=== PATIENT | male | born 1970 | race Caucasian/White ===

== ENCOUNTER 2018-04-26 14:56 | Emergency (ER) | payer OTHER ==
[2018-04-26 15:15] VITALS: BP 148/79
[2018-04-26] MEDS ORDERED: NAPROXEN 250 MG TABLET PO STA (16:13)
[2018-04-26] MEDS ORDERED: BENZONATATE 100 MG CAPSULE PO STA (16:28)
--- NOTE | 2018-04-26 16:43 | ED Physician Documentation ---
History of Present Illness - Stated complaint Stated Complaint: BODY ACHES, COUGH, - Chief complaint Chief Complaint: General - Additonal information Additional information: 47-year-old male presents the emergency department with 24 hours of nasal congestion, fever, chills, cough, body aches and generally not feeling well. The patient has reported improvement with his body aches with Tylenol. No other sick contacts. No reports of respiratory distress or difficulty breathing. Symptoms are described as moderate. No other associated symptoms. The patient has not had his flu shot. Review of Systems Constitutional: reports: Fever, Chills, Myalgias Eyes: denies: Discharge Ears: denies: Ear pain Nose: reports: Rhinorrhea / runny nose, Congestion Throat: reports: Sore throat Cardiac: denies: Pedal edema Respiratory: reports: Cough GI: denies: Constipation : denies: Dysuria Skin: denies: Rash Musculoskeletal: denies: Neck pain PD PAST MEDICAL HISTORY - Past Medical History Past Medical History: No - Past Surgical History Past Surgical History: No - Present Medications Home Medications: Ambulatory Orders Medication Instructions Recorded Confirmed Azithromycin [Zithromax] 250 mg PO DAILY #6 tablet 03/22/15 Benzonatate [Tessalon] 100 mg PO TID PRN #20 capsule 03/22/15 guaiFENesin/CODEINE [Robitussin AC] 5 - 10 ml PO Q6H PRN #120 udc 03/22/15 Albuterol Sulf [Ventolin Hfa 1 - 2 puffs INH Q4HR PRN #1 inhaler 04/26/18 Inhaler] Benzonatate [Tessalon Perle] 100 mg PO TID PRN #30 capsule 04/26/18 Naproxen [Naprosyn] 500 mg PO BID PRN 30 Days #30 04/26/18 tablet - Allergies Allergies/Adverse Reactions: Allergies Allergy/AdvReac Type Severity Reaction Status Date / Time No Known Drug Allergies Allergy Verified 03/22/15 10:13 - Social History Does the pt smoke?: No Smoking Status: Never smoker Does the pt drink ETOH?: No PD ED PE NORMAL - General General: Alert and oriented X 3, No acute distress - HEENT HEENT: Atraumatic, PERRL, EOMI - Cardiac Cardiac: RRR, Strong equal pulses - Respiratory Respiratory: No respiratory distress, Clear bilaterally - Derm Derm: Normal color - Extremities Extremities: No deformity - Neuro Neuro: Alert and oriented X 3, Normal speech - Psych Psych: Normal mood Results - Vitals Vitals: Vital Signs - 24 hr 04/26/18 15:09 Temperature 36.2 C L Heart Rate 86 Respiratory 14 Rate Blood Pressure 148/79 H O2 Saturation 96 Oxygen O2 Source Room air - Labs Labs: Laboratory Tests 04/26/18 15:15 Influenza A (Rapid) POSITIVE H Influenza B (Rapid) Negative PD MEDICAL DECISION MAKING - ED course ED course: The patient has influenza, the patient's symptoms are mild in nature and he appears appropriate for outpatient management. The natural course of influenza was discussed with the patient. I discussed warning signs and recommended returning to the emergency department immediately for any worsening or any concerns. Departure - Departure Disposition: 01 Home, Self Care Clinical Impression: Influenza Condition: Good Instructions: ED Influenza Ch Prescriptions: Albuterol Sulf [Ventolin Hfa Inhaler] 1 - 2 puffs INH Q4HR PRN #1 inhaler PRN Reason: Shortness Of Air/Wheezing Benzonatate [Tessalon Perle] 100 mg PO TID PRN #30 capsule PRN Reason: Cough Naproxen [Naprosyn] 500 mg PO BID PRN 30 Days #30 tablet PRN Reason: Pain Comments: Please follow-up with your primary care physician in 7 days. Please return to the emergency department for worsening symptoms or any concerns.
== END 2018-04-26 16:52 | disposition home or self-care (01) ==
LOC: ED 14:56
DX: J11.1 Influenza due to unidentified influenza virus with other respiratory manifestations (principal)
CPT/HCPCS: 87275; 87276; 99283; A9270

== ENCOUNTER 2020-01-11 08:48 | Outpatient (CLI) | payer OTHER ==
[2020-01-11 09:37] VITALS: BP 132/92
--- NOTE | 2020-01-11 09:37 | SLEEP CARE CONSULTATION ---
Information from patient questionnaire entered by Laverne Bain. I have reviewed and concur with the information entered by Laverne Bain. This document represents the service I personally performed and the decisions made by me, Yanique Colon ARNP. History of Present Illness Service Date and Time: 01/11/2020 0848 Reason for Visit: New patient Chief Complaint: reports: Unrefreshed sleep, Snoring (has woken up snoring, also seen), Excessive daytime sleepiness, Observed pauses in breathing, Fatigue. denies: Insomnia, Frequent awakenings at night Duration of Symptoms: several years Usual bedtime: 10pm Time it takes to fall asleep: 60 minutes Snores at night: Yes Observed to quit breathing while asleep: Yes () Sleeps alone due to snoring: No Number of times waking at night: maybe once Reasons for waking at night: reports: Choking (not often), Snoring, Gasping for air (not often), Bathroom. denies: Pain Toss, Turn, or Twitch while sleeping: Yes Recalls having dreams: Yes (sometimes) Usually gets out of bed at: 6:45 am Feels refreshed in the morning: No Morning headache: Yes (last 20-30 minutes) Sleepy or fatigued during the day: Yes Ever fallen asleep while driving: No Takes day naps: Yes (occasionally) Dreams during day naps: No Prior sleep studies: No Additional HPI information: Patient and concerned about him stopping breathing during sleep and he is unable to get restful sleep. He usually wakes up tired. He has not had a problem with drowsy driving. - Parasomnia Symptoms Ever been unable to move upon waking from sleep: No Walks in sleep: No Talks in sleep: No Ever acted out dreams in sleep: Yes Ever felt weak in the knees when startled or emotional: No Bothered by creepy, crawly, restless sensations in legs: No Problems with memory or concentration: Yes (both) Subjective Initial [place] Sleepiness Scale score: 10 (in 2019) Past Medical History Past Medical History: reports: Hypertension. denies: Claustrophobia, Congestive Heart Failure, Diabetes, Coronary Heart Disease, Arrythmia, Hypothyroidism, Anxiety, Impotence, Depression, Mood disorder (occasional heartburn), GERD Social History The patient's occupation is a active . Patient is and lives in [place]. Have you smoked in the past 12 months: Yes Cigarettes per day (20/pack): 10 Years of smokin Smoking Pack Years: 3.5 Alcohol use: Yes Alcohol amount and frequency: 1-2 couple days a week Caffeine use: Yes Caffeine amount and frequency: 20 oz coffee daily Family History Family history of sleep disordered breathing: No Family Hx Sleep Apnea: Mother: Snoring Allergies and Home Medications Drug allergies reviewed: Yes (NKDA) Home medication list reviewed: Yes (no medications taken daily) Review of Systems Cardiovascular: reports: high blood pressure. denies: palpitations, chest pain, irregular heart rate or pulse, leg or foot swelling, have to sleep sitting up Respiratory: denies: shortness of breath, wheeze, chronic cough Gastrointestinal: reports: heartburn. denies: difficulty swallowing Urinary: denies: incontinence, frequency, urgency, impotence, other Neurological: reports: headaches (usually resolve quickly in morning without intervention). denies: seizure, head trauma, disorientation, speech dysfunction, gait or balance problems Psychiatric: denies: anxiety, depression, mood disorder, claustrophobia Ear/Nose/Throat: reports: nasal congestion, sinus problems, dry mouth/throat (through the day; coffee helps), injury to nose (broken a couple times growing up), wisdom teeth removed. denies: nose bleeds, hoarseness, tonsillectomy Endocrine: denies: thyroid disease, history of goiter, sluggishness, too hot or cold, excessive thirst, increased appetite, unexplained weakness Musculoskeletal: reports: joint pain, muscle pain or cramping Immunologic: reports: itching, allergies to food or environment (seasonal, fall) Physical Exam Blood Pressure: 132/92 Cuff size: long Heart Rate: 63 O2 Saturation: 97 Height: 6 ft 3 in Weight: 226 lb 9.6 oz Body Mass Index: 28.3 BMI Classification: Overweight Neck circumference: 17 (inches) HEENT: No craniofacial malformation Nostrils: patent to airflow Turbinates: swollen Septum: midline Mouth and throat: normal Soft palate: normal Hard palate: normal Uvula: normal Uvula visualization: 50% Mallampati Class II Tongue: normal in size Tonsils: 1+ Chin and jaw: normal size and position Neck: normal w/o lymphadenopathy or thyromegaly Heart: regular rate and rhythm Lungs: clear bilaterally Impression and Plan 1. Suspected Obstructive Sleep Apnea-Hypopnea Syndrome, as suggested by a history of loud and irregular snoring, observed cessation of breath while asleep, gasping or choking in sleep, morning headache, unrefreshed sleep, and excessive daytime sleepiness. Narrow oropharynx and obesity are common predisposing factors for obstructive sleep apnea-hypopnea syndrome. I recommend proceeding to polysomnography to confirm the diagnosis and to assess severity. I informed the patient of what the sleep studies involve and after some discussi on, obtained agreement to proceed. The pathophysiology of obstructive sleep apnea-hypopnea syndrome was discussed with the patient and health risks of cardiovascular and cerebrovascular disease if not treated. AAS brochure for obstructive sleep apnea-hypopnea syndrome given and reviewed. * Schedule polysomnography and return in 1-2 weeks after the study to discuss result and initiate therapy. * Avoid long distance driving or driving when feeling sleepy. * Avoid alcohol, sedative and muscle relaxant around bedtime. * Attempt to lose weight. * Review instructions provided by trained office staff on how to prepare for the sleep study. * Return for follow-up after sleep study completed. Time Spent with Patient (minutes): 30
== END 2020-01-11 08:49 | disposition home or self-care (01) ==
LOC: SC 08:48
PROVIDERS: ATTEND Nurse Practitioner Family
DX: R06.83 Snoring (principal); R06.81 Apnea, not elsewhere classified; R51 Headache; G47.10 Hypersomnia, unspecified; E66.3 Overweight; Z68.28 Body mass index [BMI] 28.0-28.9, adult
CPT/HCPCS: 99204; 99212

== ENCOUNTER 2020-02-08 08:22 | Outpatient (CLI) | payer OTHER ==
--- NOTE | 2020-02-08 09:43 | SLEEP CARE CONSULTATION ---
Information from patient questionnaire entered by Laverne Bain. I have reviewed and concur with the information entered by Laverne Bain. This document represents the service I personally performed and the decisions made by , Yanique Colon ARNP. History of Present Illness Service Date and Time: 02/08/2020821 Initial [place] Sleepiness Scale score: 10 (in 2019) Additional HPI information: DIEGO AC returns for follow up and results of the recently performed polysomnography. I explained the pathophysiology behind obstructive sleep apnea. We then spent quite a bit of time discussing different treatment options. For mild obstructive sleep apnea, surgery and oral appliance are alternatives to nasal CPAP therapy but in moderate or severe cases, nasal CPAP is the most effective and reliable treatment. Because apnea is primarily in supine position, then positional management therapy could be effective. Methods discussed such as positioning with pillows, using a T-shirt with tennis balls in the back, and shown commercial products that have a pillow format on back to prevent supine sleep. I reviewed the impact of weight changes on sleep apnea and strongly recommended losing weight. After some discussion, the patient opted to go with the nasal CPAP therapy. Nasal autoCPAP set at 4-15 cmH20 will be ordered with rationale explained. A manual titration study will be ordered if unable to find optimal pressure with office adjustments. I explained how CPAP machine works with sample devices RespirGocietys Dreamstation and ResSkyKick [id number] and what to expect when using the machine. Using CPAP every night in order to get used to it was emphasized. Patient advised to put CPAP mask on before getting into bed so as not to fall asleep without CPAP. To assist acclimation to CPAP use, it could also be used for a short time during day while reading or watching TV. The patient was instructed to call the CPAP supplier to discuss any mechanical problem that may occur. If the mask given is uncomfortable or is difficult to keep on through the night even with adjustment, contact the CPAP supplier as many will replace with another mask style if notified before 30 days. If snoring or perceives is not getting enough air or too much air from the machine, notify this office. AAS patient education PAP tips reviewed and given to patient. Patient counseled not drink alcohol less than 4 hours before bedtime as it can increase snoring and apnea. Patient was cautioned about risks of drowsy driving until sleepiness symptoms resolve. Sleep Study - Results Type of Sleep Study: Polysomnography Prior sleep studies: No Polysomnography/Home Sleep Study results: IMPRESSION: The quality of the study is good. The patient had normal sleep efficiency. The sleep architecture was normal. Respiratory monitoring showed moderate obstructive sleep apnea- hypopnea (AHI = 18.6) associated with oxyhemoglobin desaturation and mild hypoxia (joel oxygen saturation of 83%) but not sleep fragmentation. The respiratory events occurred mainly during REM sleep (supine AHI = 36.7; non- supine = 9.24). Snore was loud in intensity. There was no significant periodic leg movement of sleep. Cardiac rhythm was normal sinus rhythm without significant arrhythmia. No abnormal behavior (parasomnia) observed du ring the night. CONCLUSIONS and RECOMMENDATIONS: 1. The patient has moderate obstructive sleep apnea-hypopnea. ICD-10 G47.33. Positive airway pressure therapy is indicated. Other types of therapy such as upper airway surgery and oral appliance may be considered depending of clinical findings. A follow up manual CPAP/bi-level titration study is recommended to find the optimal treatment pressure if positive airway pressure therapy is going to be utilized. With BMI of 28.4 Kg/M2, some weight loss is also recommended. Allergies and Home Medications Drug allergies reviewed: Yes (NKDA) Home medication list reviewed: Yes (no changes) Review of Systems Review of systems same as previous: Yes (no changes) Physical Exam Heart Rate: 61 O2 Saturation: 97 Height: 6 ft 3 in Weight: 224 lb Body Mass Index: 28.0 BMI Classification: Overweight Impression and Plan 1. Obstructive Sleep Apnea-Hypopnea Syndrome, 18.6, with lowest oxygen saturation of 83%. Obviously this is the cause of the patients symptoms of unrefreshed sleep, and excessive daytime sleepiness. Positive pressure therapy could benefit his hypertension. As mentioned above, the patient will be started on nasal autoCPAP therapy with pressure set at 4-15 cmH2O. A manual titration study will be completed if unable to find optimal treatment pressure with office adjustments. Compliance guidelines also reviewed. A copy of compliance guidelines will be given for reference at check out. Because the apnea is more severe supine, I instructed to avoid sleeping supine using pillow positioning until able to start CPAP use. * Nasal auto CPAP therapy, pressure at 4-15 cm H2O. * Attempt to lose weight. * Avoid alcohol consumption near bedtime. * Avoid supine sleep until using CPAP. * The patient is again cautioned about driving until sleepiness completely resolves. * Return one month after CPAP obtained. I will assess response to therapy and compliance at that time. Visit Type: In Office Time Spent with Patient (minutes): 16 Provider Statement: I spent 100% of the Face to Face Visit with the patient with greater than 50% spent counseling the patient and coordination of care.
== END 2020-02-08 08:23 | disposition home or self-care (01) ==
LOC: SC 08:22
PROVIDERS: ATTEND Nurse Practitioner Family
DX: G47.33 Obstructive sleep apnea (adult) (pediatric) (principal); E66.3 Overweight; Z68.28 Body mass index [BMI] 28.0-28.9, adult
CPT/HCPCS: 99212; 99213

== ENCOUNTER 2023-02-02 12:19 | Emergency (ER) | payer OTHER ==
[2023-02-02 12:28] VITALS: BP 153/89; O2SAT 96
[2023-02-02 12:45] LABS: GLUCOSE, URINE (UA) NEGATIVE (NEGATIVE); KETONES,URINE (UA) NEGATIVE (NEGATIVE); LEUKOCYTE ESTERASE, URINE NEGATIVE (NEGATIVE); NITRITE,URINE NEGATIVE (NEGATIVE); OCCULT BLOOD,URINE LARGE (NEGATIVE); PROTEIN,URINE NEGATIVE (NEGATIVE); UROBILINOGEN,URINE 0.2 (NORMAL) E.U./dL (NORMAL)
[2023-02-02 12:51] LABS: BILIRUBIN,URINE NEGATIVE (NEGATIVE); CLARITY,URINE CLEAR (CLEAR); ICTOTEST,URINE NEGATIVE
[2023-02-02 12:57] LABS: BACTERIA,URINE Rare /HPF (None Seen); RBC,URINE 0-5 /HPF (0-5); SQUAMOUS EPITHELIAL CELL,UR RARE Squamous (<= Few); WBC,URINE 0-3 /HPF (0-3)
--- NOTE | 2023-02-02 14:13 | ED Physician Documentation ---
PD HPI MALE - Stated complaint Stated Complaint: - Chief complaint Chief Complaint: General - History obtained from History obtained from: Patient - History of Present Illness Timing - onset: How many days ago (2) Timing - duration: Days (2) Timing - details: Gradual onset, Still present Associated symptoms: Dysuria, Urinary frequency (with feeling of incomplete emptying.), Hematuria. No: Discharge, Genital sore / lesion PD HPI MALE CONTRIB FACTORS: No: Exposed to STD Similar symptoms before: Has not had sx before Review of Systems Constitutional: denies: Fever, Chills GI: denies: Abdominal Pain : reports: Dysuria, Frequency, Hematuria. denies: Discharge Skin: denies: Rash, Lesions PD PAST MEDICAL HISTORY - Past Medical History Past Medical History: Yes Cardiovascular: None Respiratory: None : None - Past Surgical History Past Surgical History: No - Present Medications Home Medications: Ambulatory Orders Medication Instructions Recorded Confirmed Azithromycin [Zithromax] 250 mg PO DAILY #6 tablet 03/22/15 Benzonatate [Tessalon] 100 mg PO TID PRN #20 capsule 03/22/15 guaiFENesin/CODEINE [Robitussin AC] 5 - 10 ml PO Q6H PRN #120 udc 03/22/15 Albuterol Sulf [Ventolin Hfa 1 - 2 puffs INH Q4HR PRN #1 inhaler 04/26/18 Inhaler] Benzonatate [Tessalon Perle] 100 mg PO TID PRN #30 capsule 04/26/18 Naproxen [Naprosyn] 500 mg PO BID PRN 30 Days #30 04/26/18 tablet Ciprofloxacin HCl [Cipro] 500 mg PO BID #14 tablet 02/02/23 Naproxen 250 mg PO BID 7 Days #14 tablet 02/02/23 - Allergies Allergies/Adverse Reactions: Allergies Allergy/AdvReac Type Severity Reaction Status Date / Time No Known Drug Allergies Allergy Verified 02/02/23 12:21 - Social History Does the pt smoke?: No Smoking Status: Never smoker Does the pt drink ETOH?: No PD ED PE NORMAL - Vitals Vital signs reviewed: Yes - General General: Alert and oriented X 3, No acute distress, Well developed/nourished - Abdomen Abdomen: Soft, Non tender - Male Male : Deferred - Back Back: No CVA TTP - Derm Derm: Normal color, Warm and dry Results - Vitals Vitals: Vital Signs - 24 hr 02/02/23 12:21 Temperature 36.5 C Heart Rate 69 Respiratory 16 Rate Blood Pressure 153/89 H O2 Saturation 96 Oxygen O2 Source Room air - Labs Labs: Laboratory Tests 02/02/23 12:38 Urine Color DARK YELLOW Urine Clarity CLEAR Urine pH 5.0 Ur Specific [place] >=1.030 H Urine Protein NEGATIVE Urine Glucose (UA) NEGATIVE Urine Ketones NEGATIVE Urine Occult Blood LARGE H Urine Nitrite NEGATIVE Urine Bilirubin NEGATIVE Urine Urobilinogen 0.2 (NORMAL) Ur Leukocyte Esterase NEGATIVE Urine RBC 0-5 Urine WBC 0-3 Ur Squamous Epith Cells RARE Squamous Urine Bacteria Rare Ur Microscopic Review INDICATED Urine Culture Comments NOT INDICATED PD Medical Decision Making - ED course Complexity details: reviewed results (some blood in urine. Not obvious infected. Tech did blader scanner and he had some mild/moderate retention after void (190 ml).), considered differential (has had discomfort with urinating, frequency, and some lower abd cramping pains. onsider UTI vs prostatitis. UA without obvious infection but does have blood in urine void. Symptoms most c/w cstitis o r prostatitis. I would treat with abx and NSAIDs.), d/w patient Departure - Departure Disposition: 01 Home, Self Care Clinical Impression: Dysuria Condition: Stable Record reviewed to determine appropriate education?: Yes Instructions: ED Dysuria Uncertain Cause Follow-Up: Srinivasa Hairston MD [Provider Admit Priv/Credential] - Prescriptions: Ciprofloxacin HCl [Cipro] 500 mg PO BID #14 tablet Naproxen 250 mg PO BID 7 Days #14 tablet Comments: Your bladder scanner showed a little bit higher than expected amount of urine left in the bladder after urinating but still not high enough to think that your primary symptoms are urinary retention. Your symptoms sound likely to be an inflammation/infection in the bladder or prostate. We can go with ciprofloxacin antibiotic twice daily for a week. Also an anti- inflammatory of naproxen twice daily for a week. Regular hydration. Recheck if not improving well over the next several days and resolved by 3 to 5 days or so. If persisting symptoms, follow-up with your primary care or alternatively with urology. I gave you the referral number. Return if needed. I sent a prescription to [facility] in [place]. Forms: PCP List Discharge Date/Time: 02/02/23 15:10
[2023-02-02] MEDS ORDERED: CIPROFLOXACIN 250 MG TABLET PO STA (14:50)
== END 2023-02-02 15:10 | disposition home or self-care (01) ==
LOC: ED 12:19
DX: R30.0 Dysuria (principal)
CPT/HCPCS: 51798; 81001; 99283; A9270; 81003; 87086

== ENCOUNTER 2024-01-05 14:18 | Outpatient (CLI) | payer OTHER ==
--- NOTE | 2024-01-05 15:25 | Sleep Patient Instructions ---
Sleep Center Visit Summary - Patient Visit Information Reason for Visit: Initial consultation - Patient Instructions Additional Instructions: You will continue with CPAP therapy with pressure changed to 5-10 cmH2O. A supply prescription will be updated with your DME. I have also written an order for a travel machine for you to get a travel CPAP. Please follow up with the sleep care office in 3 months. - Clinic Information Contact: [facility] [address] [place] [address] [email or web address] T: [phone]
[2024-01-05 15:31] VITALS: BP 137/87; O2SAT 96
--- NOTE | 2024-01-05 15:31 | SLEEP CARE CONSULTATION ---
Information from patient questionnaire entered by Floyd Puentes. I have reviewed and concur with the information entered by Floyd Puentes. This document represents the service I personally performed and the decisions made by me, Yanique Colon ARNP. History of Present Illness Service Date and Time: 01/05/2024 1418 Reason for Visit: New patient, Previously diagnosed sleep apnea, sleep apnea on CPAP therapy, Re-establish care Chief Complaint: reports: Unrefreshed sleep, Snoring, Observed pauses in breathing, Fatigue Date of Onset: 8 years Usual bedtime: 0 Time it takes to fall asleep: A few minutes Snores at night: Yes Observed to quit breathing while asleep: Yes Sleeps alone due to snoring: No Number of times waking at night: 2 to 3 times a night Reasons for waking at night: reports: Snoring, Bathroom Toss, Turn, or Twitch while sleeping: Yes Recalls having dreams: Yes Usually gets out of bed at: 0430 Feels refreshed in the morning: No Morning headache: Yes (Usually resolves after coffee) Sleepy or fatigued during the day: Yes Ever fallen asleep while driving: No Takes day naps: No Dreams during day naps: No Prior sleep studies: Yes Year and Where: 2019 [facility] Type of Sleep Study: Polysomnography Additional HPI information: DIEGO AC was previously diagnosed in 2019 to have moderate, AHI 18.6, obstructive sleep apnea-hypopnea syndrome in PS[facility] done here on 01/23/2020 and comes back today to re-establish care for CPAP therapy. He says he is "fighting with it" and is not able to keep mask on all night. He does notice improvement on mornings when he is able to keep mask on for longer periods. - Parasomnia Symptoms Ever been unable to move upon waking from sleep: No Walks in sleep: No Talks in sleep: Yes Ever acted out dreams in sleep: No Ever felt weak in the knees when startled or emotional: No Bothered by creepy, crawly, restless sensations in legs: No Problems with memory or concentration: Yes CPAP Compliance Data - Data Reviewed with Patient Average duration of nightly device use: 2 hours 22 minutes Compliance rate %: 12 (142/180 days used) Current pressure setting (cmH2O): 4-15 (median 5, avg 7.5, max 9.5) Average residual AHI: 3.4 Central apnea: 0.7 Obstructive apnea: 2.1 Hypopnea: 0.2 Average large leak: 0.6 L/min Compliance data discussion: He is using Resmed Airfit P30i. He has a Resmed Airsense 10 machine that he got in 2019. He has gotten his supplies from [employer]. Subjective Missed days of use due to: reports: other (taking mask off because can't get enough air) Patient concerns: reports: other (taking off his face at night). denies: aerophagia, mask discomfort, air blowing in eyes, mask leak noise, condensation in mask/hose, nasal congestion, dry mouth, nose, throat, epistaxis Current pressure setting perceived as: comfortable (does) On therapy, patient: reports: sleeping better, more rested overall. 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 Patient is and lives in [place]. Have you smoked in the past 12 months: No Alcohol use: Yes Alcohol amount and frequency: Two beers every other day Caffeine use: Yes Caffeine amount and frequency: 20 oz coffee daily Family History Family history of sleep disordered breathing: Yes Family Hx Sleep Apnea: Mother: Snoring Allergies and Home Medications Known drug allergies: No Drug allergies reviewed: Yes Home medication list reviewed: Yes (as listed) Allergy and home medication list: Allergies No Known Drug Allergies Allergy (Verified 01/01/24 15:26) Home Medications Medication Instructions Recorded Confirmed Last Taken Type Omeprazole See Rx Instructions .ROUTE .COMPLEX 01/05/24 01/05/24 Unknown History SUMAtriptan See Rx Instructions .ROUTE .COMPLEX 01/05/24 01/05/24 Unknown History Review of Systems Weight gain over past 5 years: 5 Cardiovascular: denies: high blood pressure Gastrointestinal: reports: heartburn Urinary: reports: frequency Neurological: reports: headaches Psychiatric: denies: anxiety, depression Ear/Nose/Throat: reports: sinus problems. denies: tonsillectomy Physical Exam Vital signs obtained and entered by: Yanique Johnson NP Blood Pressure: 137/87 Cuff size: long (left arm) Heart Rate: 69 O2 Saturation: 96 Height: 6 ft 1.25 in Weight: 228 lb 9.6 oz Body Mass Index: 29.9 BMI Classification: Overweight Neck circumference: 17 Heart: regular rate and rhythm Lungs: clear bilaterally Impression and Plan 1. Obstructive Sleep Apnea-Hypopnea Syndrome, moderate, with fair treatment compliance and good apnea control. On CPAP therapy, the patient has better sleep quality and is more rested overall when he is able to keep the mask on for longer periods. He will wake up feeling like he is suffocating and take the mask off sometimes and other times he just finds that he is taking the mask off during the night. He is using a nasal pillows mask and would like to try a different style but stay in the nasal cushion mask instead of a fullface. I will write for a mask refitting update his supply prescription. I will have him come back in 3 months so that we can reevaluate if a titration study is needed to pressure settings. The patients pressure will be changed to autoCPAP 5-10 cmH20 to reflect pressures being used. Patient advised to contact me if pressure change is uncomfortable so that it can be adjusted. Goals for apnea control discussed. Patient also requesting a prescription for a travel CPAP. Patient's apnea severity and rationale for treatment to reduce apnea, improve sleep quality and reduce cardiovascular and cerebrovascular events was reviewed. I also reviewed the benefit of consistent device use of CPAP for gastric reflux and migraines. 2. Overweight, unspecified. Currently patients BMI is 29.9. Obesity increases the risk of apnea, CPAP pressure requirements and overall health risks especially cardiovascular and diabetes. Thus patient is advised to lose weight. * Change auto CPAP pressure to 5-10 cmH2O * Travel CPAP * Mask refitting for nasal cushion or nasal pillows mask. * Update supply prescription * Notify me if snoring with mask or feeling that the pressure is too much or too little * Attempt to lose weight * Call this office if any problems using CPAP * Return for follow up in 3 months, or sooner if concerns arise Adjust device pressure to (cmH2O): 5-10 Counseling Topics: Weight loss health impact Prescriptions: Device supplies, Other (travel CPAP) Follow up with Sleep Care in: 3 months Plan: mask refitting and follow up in 3 months to recheck compliance Visit Type: In Office Time Spent with Patient (minutes): 35 Provider Statement: I spent 100% of the Face to Face Visit with the patient with greater than 50% spent counseling the patient and coordination of care.
== END 2024-01-05 14:19 | disposition home or self-care (01) ==
LOC: SC 14:18
PROVIDERS: ATTEND Nurse Practitioner Family
DX: G47.33 Obstructive sleep apnea (adult) (pediatric) (principal); E66.3 Overweight; Z68.29 Body mass index [BMI] 29.0-29.9, adult
CPT/HCPCS: 99203; 99212